=== PATIENT | female | born 1950 | race Caucasian/White ===

== ENCOUNTER 2020-03-19 06:37 | Day surgery (SDC) | payer MEDICARE, MEDICAID ==
[~2020-03-19] VITALS: Ht 162.6 cm; Wt 71.9 kg
[~2020-03-19 06:37] MED LIST: ALB0.5UD IH; ALBU18HF2 IH; ASPI-1265 PO; DULO-31 PO; ESOM40CA PO; FOSF3PAC PO; FURO-150 PO; LEVO200T43 PO; LORA0.5T PO; MONT10TA21 PO; PRED20TA PO; PREG75CA30 PO; RAMI5CAP65 PO; SAXA5TAB PO; TAPE50TA PO; VERA120C2 PO; ZOLP10TA5 PO
[2020-03-19 07:15] VITALS: BP 103/56
[2020-03-19] MEDS ORDERED: LIDOcaine 1% (10mg/ml) 2ml vial ONE ×2 (08:16→08:17)
[2020-03-19] MEDS ORDERED: ONDA8TAB13 PO (08:19)
[2020-03-19] MEDS ORDERED: LEVO25TA2 PO (08:19)
[2020-03-19] MEDS ORDERED: FLUT1DIS INH (08:19)
[2020-03-19] MEDS ORDERED: LOVA20TA2 PO (08:19)
[2020-03-19] MEDS ORDERED: LIDO5CRE2 TP (08:19)
[2020-03-19] MEDS ORDERED: IBUP-1986 PO (08:19)
[2020-03-19] MEDS ORDERED: PANT20TA3 PO (08:19)
[2020-03-19] MEDS ORDERED: CHOL20004 PO (08:19)
[2020-03-19] MEDS ORDERED: Folic Acid PO (08:19)
[2020-03-19] MEDS ORDERED: METF-438 PO (08:19)
[2020-03-19] MEDS ORDERED: ALBU18HF2 IH (08:19)
[2020-03-19] MEDS ORDERED: LIDOcaine 1%/PF 5ML 10 MG/ML VIAL ONE (08:31)
[2020-03-19] MEDS ORDERED: heparin sodium, porcine/PF 100unit/ml 5ML syringe ONE ×2 (08:54→09:07)
[2020-03-19 09:24] VITALS: BP 113/60
[2020-03-19 09:39] VITALS: BP 118/66
[2020-03-19 09:53] VITALS: BP 103/61
== END 2020-03-19 10:00 | disposition home or self-care (01) ==
LOC: SSTAY O 06:37
PROVIDERS: ATTEND Radiology Diagnostic Radiology
DX: T82.528A Displacement of other cardiac and vascular devices and implants, initial encounter (principal); C34.00 Malignant neoplasm of unspecified main bronchus; Z88.5 Allergy status to narcotic agent; Z88.8 Allergy status to other drugs, medicaments and biological substances; Z79.82 Long term (current) use of aspirin; Z79.899 Other long term (current) drug therapy; Y83.8 Other surgical procedures as the cause of abnormal reaction of the patient, or of later complication, without mention of misadventure at the time of the procedure; Y92.89 Other specified places as the place of occurrence of the external cause
CPT/HCPCS: 36581; 77001; J1642; J2001